=== PATIENT | male | born 1945 | race Caucasian/White ===

== ENCOUNTER 2021-12-10 19:32 | Emergency (ER) | payer OTHER, MEDICARE ==
[2021-12-10] MEDS ORDERED: Bacitracin 1 PK ONE (19:54)
[2021-12-10] MEDS ORDERED: Lidocaine 1% PF 5 ML VIAL ONE (20:03)
[2021-12-10] MEDS ORDERED: Sulfameth/Trimethoprim DS 800-160mg TAB ONE (21:03)
== END 2021-12-10 21:10 | disposition home or self-care (01) ==
LOC: BURERS 19:32
DX: S61.011A Laceration without foreign body of right thumb without damage to nail, initial encounter (principal); W23.0XXA Caught, crushed, jammed, or pinched between moving objects, initial encounter
CPT/HCPCS: 12001